=== PATIENT | male | born 1980 | race Two or more races ===

== ENCOUNTER 2016-07-28 14:05 | Emergency (ER) | payer SELFPAY ==
[~2016-07-28] VITALS: Ht 167.6 cm; Wt 69.0 kg
[2016-07-28 15:13] VITALS: BP 121/86
[2016-07-28] MEDS ORDERED: TETANUS AND DIPHTHERIA TOX/PF 0.5ML SYR (ADULT) IM ONE (16:00)
[2016-07-28] MEDS ORDERED: ACETAMINOPHEN 500MG TABLET PO ONE (16:00)
[2016-07-28] MEDS ORDERED: TETANUS, DIPHTHERIA, PERTUSSIS VAC/PF 0.5ML (>7YR OLD) IM ONE (16:15)
[2016-07-28] MEDS: ACETAMINOPHEN 500MG TABLET PO NR ×2 (16:30→16:44)
[2016-07-28] MEDS ORDERED: BACITRACIN ZINC OINT UDPKT TOP ONE (16:30)
== END 2016-07-28 16:50 | disposition home or self-care (01) ==
LOC: ER 14:07
DX: S61.231A Puncture wound without foreign body of left index finger without damage to nail, initial encounter (principal); W27.8XXA Contact with other nonpowered hand tool, initial encounter; Y93.89 Activity, other specified; Y92.89 Other specified places as the place of occurrence of the external cause; Y99.8 Other external cause status
CPT/HCPCS: 90471; 90715; 99283; Z7610; 90714